=== PATIENT | female | born 1945 | race Caucasian/White ===

== ENCOUNTER 2016-07-15 09:01 | Outpatient (CLI) | payer MEDICARE, OTHER ==
--- NOTE | 2016-07-16 15:35 | Mammography Report ---
DIGITAL SCREENING MAMMOGRAM: 07/15/2016 CLINICAL INDICATION: A 70-year-old with history of benign left breast biopsy, family history of breas t cancer, for screening. COMPARISON: 07/2015, 07/2014, 05/2013, 04/2012, 04/2011, 03/2010, 01/2009. TECHNIQUE: Routine CC and MLO projections were obtained of the breasts. Bilateral laterally exaggera cesar craniocaudal views. FINDINGS: The breasts demonstrate scattered fibroglandular densities bilaterally. Postbiopsy changes in the left breast are stable. Coarse and punctate, typically benign calcifications are present. No suspicious masses, clustered microcalcifications, or regions of architectural distortion are identifi ed. IMPRESSION: BENIGN FINDINGS. RECOMMENDATION: ROUTINE ANNUAL SCREENING UNLESS OTHERWISE CLINICALLY INDICATED. BIRADS CATEGORY 2-BENIGN FINDINGS. STANDARD QUALIFYING STATEMENTS 1. This examination was reviewed with the aid of Computer-Aided Detection (CAD). 2. A negative or benign imaging report should not delay biopsy if clinically suspicious findings are present. Consider surgical consultation if warranted. More than 5% of cancers are not identified by i maging. 3. Dense breasts may obscure an underlying neoplasm. JOB #: [id number] EXT JOB #:[id number]
== END 2016-07-15 09:02 | disposition home or self-care (01) ==
LOC: DI 09:01
PROVIDERS: ATTEND Internal Medicine
DX: Z12.31 Encounter for screening mammogram for malignant neoplasm of breast (principal); Z80.3 Family history of malignant neoplasm of breast
CPT/HCPCS: 77067

== ENCOUNTER 2017-10-27 08:50 | Outpatient (CLI) | payer MEDICARE, OTHER ==
--- NOTE | 2017-11-01 12:47 | Mammography Report ---
Reason: SCREENING MAMMO Procedure Date: 10/27/2017 Accession Number: [id number] / [id number] Procedure: KARAN - Screening Mammo Dig Bilat CPT Code: FULL RESULT: EXAM: Screening Mammo Dig Bilat DATE: 10/27/2017 9:30 AM CLINICAL HISTORY: 9-year-old female with history of early menses and left breast biopsy with benign pathology results and family history of breast cancer in the mother at age 50. TECHNIQUE: Bilateral CC and MLO views were obtained. COMPARISON: 07/15/2016, 07/09/2015, 07/11/2014, 06/04/2013. FINDINGS: The breasts demonstrate heterogeneously dense fibroglandular parenchyma bilaterally. Postprocedural changes and typically benign coarse calcifications are seen in the left breast. Typically benign coarse calcifications are also seen in the right breast. No suspicious masses, clustered microcalcifications, or regions of architectural distortion are identified. IMPRESSION: Benign findings RECOMMENDATION: Routine annual screening unless otherwise clinically indicated. BIRADS CATEGORY 2: Benign findings STANDARD QUALIFYING STATEMENTS: 1. This examination was not reviewed with the aid of Computer-Aided Detection (CAD). 2. A negative or benign imaging report should not delay biopsy if clinically suspicious findings are present. Consider surgical consultation if warrented. More than 5% of cancers are not identified by imaging. 3. Dense breasts may obscure an underlying neoplasm.
== END 2017-10-27 08:51 | disposition home or self-care (01) ==
LOC: DI 08:50
PROVIDERS: ATTEND Internal Medicine
DX: Z12.31 Encounter for screening mammogram for malignant neoplasm of breast (principal); Z80.3 Family history of malignant neoplasm of breast
CPT/HCPCS: 77067

== ENCOUNTER 2018-02-24 08:19 | Outpatient (CLI) | payer MEDICARE, OTHER ==
--- NOTE | 2018-02-24 14:04 | CT Report ---
Reason: PARETHESIA IN HANDS AFTER FALL,DIAS VISUAL CHANGES,B Procedure Date: 02/24/2018 Accession Number: [id number] / [id number] Procedure: CT - Head W/O CPT Code: FULL RESULT: EXAM: CT HEAD EXAM DATE: 02/24/2018 08:35 AM. CLINICAL HISTORY: PARESTHESIA IN HANDS AFTER FALL,DIAS VISUAL Charges. COMPARISON: None. TECHNIQUE: Multiaxial CT images were obtained from the foramen magnum to the vertex. Reformats: Sagittal and coronal. IV contrast: None. In accordance with CT protocol optimization, one or more of the following dose reduction techniques were utilized for this exam: automated exposure control, adjustment of mA and/or KV based on patient size, or use of iterative reconstructive technique. FINDINGS: Parenchyma: No intraparenchymal hemorrhage. No evidence of mass, midline shift, or CT findings of acute infarction. Atkins-white differentiation is distinct. Diffuse chronic microangiopathic white matter changes are evident. Extraaxial Spaces: Normal for age. No subdural or epidural collections identified. Ventricles: The ventricles and cortical sulci are enlarged, consistent with age-related tissue loss. Sinuses and orbits: Imaged paranasal sinuses, orbits, and mastoids show no significant abnormality. Bones: No evidence of fracture or calvarial defect. Other: None. IMPRESSION: Generalized age-related cortical atrophic changes without evidence of acute intracranial abnormality. RADIA
--- NOTE | 2018-02-24 14:04 | CT Report ---
Reason: PARETHESIA IN HANDS AFTER FALL,DIAS VISUAL CHANGES,B Procedure Date: 02/24/2018 Accession Number: [id number] / [id number] Procedure: CT - Cervical Spine W/O CPT Code: FULL RESULT: EXAM: CT CERVICAL SPINE WITHOUT CONTRAST DATE: 02/24/2018 08:35 AM. HISTORY: PARESTHESIA IN HANDS AFTER FALL,DIAS VISUAL CHANGES,B. COMPARISONS: None. TECHNIQUE: Thin-section axial images were acquired of the cervical spine without contrast. Post-processing: Coronal and sagittal reformats. Other: None. In accordance with CT protocol optimization, one or more of the following dose reduction techniques were utilized for this exam: automated exposure control, adjustment of mA and/or KV based on patient size, or use of iterative reconstructive technique. FINDINGS: Alignment: Reversal of normal cervical lordosis. Grade 1 anterolisthesis C4 on C5. Bones: No fracture or bone lesion. Interspace Levels/Facets: C1-C2: Anterior degenerative changes between the atlas odontoid. C2-C3: Unremarkable. C3-C4: Uncovertebral osteophyte. Right facet arthropathy. C4-C5: Osteophyte, uncovertebral osteophyte, right facet arthropathy. Right neuroforamina narrowing. C5-C6: Osteophyte, disk space narrowing, subchondral sclerosis. Uncovertebral osteophyte. Right facet arthropathy. Right neuroforaminal narrowing. C6-C7: Osteophyte, disk space narrowing. Mild right neuroforamina narrowing C7-T1: Osteophyte, disk space narrowing. Musculature: Normal. No fatty atrophy. Other: The paravertebral and prevertebral soft tissues are unremarkable. Biapical scarring. Left thyroid bed clips post thyroidectomy. Carotid calcifications. IMPRESSION: 1. Grade 1 anterolisthesis C4 and C5. 2. Moderate to severe DJD. RADIA
== END 2018-02-24 08:20 | disposition home or self-care (01) ==
LOC: DI 08:19
PROVIDERS: ATTEND Internal Medicine
DX: R51 Headache (principal); M47.9 Spondylosis, unspecified; M43.12 Spondylolisthesis, cervical region; M48.02 Spinal stenosis, cervical region; H53.9 Unspecified visual disturbance; R20.2 Paresthesia of skin
CPT/HCPCS: 70450; 72125

== ENCOUNTER 2018-12-14 10:12 | Outpatient (CLI) | payer MEDICARE, OTHER ==
--- NOTE | 2018-12-15 08:32 | Mammography Report ---
Reason: SCREENING MAMMO Procedure Date: 12/14/2018 Accession Number: [id number] / [id number] Procedure: KARAN - Screening Mammo w/Albert CPT Code: Final Report FULL RESULT: EXAM: Screening Mammo w/Albert DATE: 12/14/2018 11:07 AM CLINICAL HISTORY: Screening encounter. History of benign left breast biopsy, excisional type. Family history of breast cancer in the mother at the age of 50. TECHNIQUE: (B) - Bilateral CC and MLO views were obtained. COMPARISON: 10/27/2017 through 01/13/2009. PARENCHYMAL PATTERN: (D) - The breast(s) demonstrate(s) heterogeneously dense fibroglandular parenchyma. FINDINGS: Left breast postsurgical changes are stable, typically benign. There are no suspicious masses, calcifications, or areas of distortion. IMPRESSION: Benign findings. BI-RADS category 2. RECOMMENDATION: (ANNUAL) - Recommend routine annual screening mammography. BI-RADS CATEGORY: (2) - Benign Findings. STANDARD QUALIFYING STATEMENTS: 1. This examination was not reviewed with the aid of Computer-Aided Detection (CAD). 2. A negative or benign imaging report should not preclude biopsy if clinically suspicious findings are present. 3. Dense breasts may obscure an underlying neoplasm. 4. This examination was reviewed with the aid of 3D breast imaging (tomosynthesis).
== END 2018-12-14 10:13 | disposition home or self-care (01) ==
LOC: DI 10:12
PROVIDERS: ATTEND Internal Medicine
DX: Z12.31 Encounter for screening mammogram for malignant neoplasm of breast (principal); Z80.3 Family history of malignant neoplasm of breast
CPT/HCPCS: 77063; 77067

== ENCOUNTER 2019-01-01 10:08 | Outpatient (CLI) | payer MEDICARE, OTHER ==
--- NOTE | 2019-01-01 14:00 | CARDIAC PROCEDURE NOTE ---
DATE OF SERVICE: 01/01/2019 Physician: Dilcia Pickett MD PROTOCOL: Magdy. TIME: 6 minutes 27 seconds. METS: 7.71. REASON FOR STOPPING TEST: Patient had surpassed 85% of maximum predicted heart rate, and had exercised for over 1 minute after the injection. Heart rate response: 99 to a maximum of 148. Blood pressure response: 188/88 resting, which was the maximum symptoms: No chest pain ST segment response: [address] segment depressions in leads V4 and V5 at maximal exercise. Arrhythmias: frequent PVCs, at least 60. IMPRESSION: No symptoms and no significant EKG changes. CONCLUSION: Await results of the imaging studies. TD: 01/01/2019 13:13 LUCIA
--- NOTE | 2019-01-02 08:25 | Nuclear Medicine Report ---
Reason: CHEST PAIN Procedure Date: 01/01/2019 Accession Number: [id number] / [id number] Procedure: NM - Myocardial Perfusion STR/RST CPT Code: Final Report FULL RESULT: EXAM: SINGLE-ISOTOPE PHARMACOLOGICAL STRESS TEST WITH REGADENOSON. SINGLE-ISOTOPE AND TWO-DAY REST/STRESS MYOCARDIAL PERFUSION SCANS WITH TOMOGRAPHIC IMAGING, QUANTITATIVE ANALYSIS, WALL MOTION ANALYSIS AND CALCULATION OF EJECTION FRACTION. EXAM DATE: 01/01/2019 02:09 PM. CLINICAL HISTORY: CHEST PAIN. COMPARISON: None.. TECHNIQUE: A pharmacological stress was performed with the infusion of 0.4 mg regadenoson per protocol. According to protocol, 10.7 mCi of Tc-99m sestamibi was injected for stress myocardial perfusion scan. Motion correction was applied when appropriate. The following day after the intravenous administration of 42.4 mCi of Tc-99m sestamibi, a rest myocardial perfusion scan was done with tomography. Motion correction was applied when appropriate. Gated tomographic images were obtained for wall motion analysis and computation of left ventricular ejection fraction. FINDINGS: Perfusion images: Left ventricular chamber size appears normal at rest and unchanged at stress. No convincing fixed perfusion deficits. No convincing reversible perfusion deficits. SSS 0, SRS 0, SDS 0. Gated images: No convincing focal wall motion abnormality. Calculated left ventricular EDV 41 mL, ESV 3 mL. The left ventricular ejection fraction is estimated at 92% (normal > 50%). IMPRESSION: 1. No convincing reversible perfusion deficits to indicate stress-induced ischemia. 2. No convincing fixed perfusion deficits. 3. Left ventricular ejection fraction of 92% (normal > 50%). Please correlate findings with stress ECG tracings and procedure notes. RADIA
== END 2019-01-01 10:09 | disposition home or self-care (01) ==
LOC: DI 10:08
PROVIDERS: ATTEND Internal Medicine
DX: R07.9 Chest pain, unspecified (principal)
CPT/HCPCS: 78452; 93017; A9500

== ENCOUNTER 2019-12-25 15:45 | Outpatient (CLI) | payer MEDICARE, OTHER ==
--- NOTE | 2019-12-26 15:35 | Mammography Report ---
BILATERAL DIGITAL SCREENING MAMMOGRAM 3D/2D: 12/25/2019 CLINICAL: Routine screening. Comparison is made to exams dated: 12/14/2018 mammogram, 10/27/2017 mammogram, and 07/15/2016 mammogram - [facility]. There are scattered fibroglandular elements in both breasts. No significant masses, calcifications, or other findings are seen in either breast. There has been no significant interval change. IMPRESSION: NEGATIVE There is no mammographic evidence of malignancy. A 1 year screening mammogram is recommended. This exam was interpreted at Station ID: [id number]. NOTE: For mammograms, a report in lay terms will be sent to the patient. Approximately 15% of breast malignancies will not be visualized mammographically. In the management of a palpable breast mass, a negative mammogram must not discourage biopsy of a clinically suspicious lesion. Electronically Signed By: Ariella wadsworth/alda:12/25/2019 18:09:31 ACR BI-RADS Category 1: Negative 3341F PARENCHYMAL PATTERN: (A) - The breast(s) demonstrate(s) scattered fibroglandular densities. BI-RADS CATEGORY: (1) - 1 RECOMMENDATION: (ANNUAL) - Recommend routine annual screening mammography. [id number] 1 year screening LATERALITY: (B)
== END 2019-12-25 15:46 | disposition home or self-care (01) ==
LOC: DI 15:45
PROVIDERS: ATTEND Internal Medicine
DX: Z12.31 Encounter for screening mammogram for malignant neoplasm of breast (principal)
CPT/HCPCS: 77063; 77067

== ENCOUNTER 2021-01-04 10:44 | Outpatient (CLI) | payer MEDICARE, OTHER | END 2021-01-04 10:45 | disposition critical access hospital (66) | LOC: EMS 10:44 | DX: R20.0 Anesthesia of skin (principal); R20.2 Paresthesia of skin; R47.01 Aphasia | CPT/HCPCS: A0425; A0427 ==

== ENCOUNTER 2021-01-04 10:55 | Emergency (ER) | payer MEDICARE, OTHER ==
[2021-01-04 11:03] VITALS: BP 183/82
--- NOTE | 2021-01-04 11:45 | ED Physician Documentation ---
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 Got anxious about it and then felt short of breath, developing subsequent tingling in arms and face. called EMS and they noted her hyperventilating. Coached to breath slower and her symptoms improved. Not feeling weakness, numbness, nor lightheaded on arrival to ER. Associated symptoms: denies chest pain, focal weakness. Had some pressure feeling frontal area when breathing fast. No headache now. - Additonal information Additional information: Patient feeling like she had anxiety reaction to the initial postural lightheadedness. She denies any headache, chest pain, dyspnea during the intercourse. Review of Systems Constitutional: denies: Fever, Chills Nose: denies: Rhinorrhea / runny nose, Congestion Throat: denies: Sore throat Cardiac: denies: Chest pain / pressure, Palpitations Respiratory: denies: Cough GI: denies: Abdominal Pain, Nausea, Vomiting, Diarrhea Neurologic: reports: Generalized weakness, Near syncope (lightheaded feeling when stood up from bed after intercourse.). 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 HEENT: Tonsil/Adenoidectomy, Other Derm: Skin cancer surgery - Present Medications Home Medications: Ambulatory Orders Medication Instructions Recorded Confirmed Alprazolam [Xanax] 0.25 mg PO Q8H PRN 02/11/15 03/20/15 Ascorbic Acid [Fruit C-500] 500 mg PO DAILY 02/11/15 03/20/15 Aspirin [Aspir 81] 81 mg PO DAILY 02/11/15 03/19/15 Atorvastatin Calcium [Lipitor] 40 mg PO DAILY 02/11/15 03/20/15 Cholecalciferol (Vitamin D3) 2,000 units PO DAILY 02/11/15 03/20/15 [Vitamin D] Fluticasone [Flonase] 1 spray CHRISTIANE DAILY 02/11/15 03/19/15 Levothyroxine [Synthroid] 75 mcg PO DAILY 02/11/15 03/19/15 Losartan [Cozaar] 25 mg PO DAILY 02/11/15 03/19/15 Multivitamin [Multivitamins] 1 tab PO DAILY 02/11/15 03/19/15 [place]am-3 Fatty Acids/Fish Oil [Fish 1 cap PO DAILY 02/11/15 03/19/15 Oil 1,000 mg Capsule] Potassium Chloride [K-Dur] 20 meq PO DAILY 02/11/15 03/19/15 Vitamin B Complex 1 tab PO DAILY 02/11/15 03/19/15 Zolpidem Tartrate [Ambien] 10 mg PO DAILY 02/11/15 03/19/15 hydroCHLOROthiazide 25 mg PO DAILY 02/11/15 03/20/15 [Hydrochlorothiazide] - Allergies Allergies/Adverse Reactions: Allergies Allergy/AdvReac Type Severity Reaction Status Date / Time hydrocodone Allergy Itching Verified 01/04/21 11:03 lisinopril AdvReac Unknown Verified 01/04/21 11:03 - Social History Does the pt smoke?: No Smoking Status: Never smoker Does the pt drink ETOH?: Yes Does the pt have substance abuse?: No PD ED PE NORMAL - Vitals Vital signs reviewed: Yes - General General: Alert and oriented X 3, No acute distress, Well developed/nourished - HEENT HEENT: PERRL, EOMI, Pharynx benign - Neck Neck: Supple, no meningeal sign, No adenopathy - Cardiac Cardiac: RRR, No murmur - Respiratory Respiratory: Clear bilaterally - Abdomen Abdomen: Normal bowel sounds, Soft, Non tender - Back Back: No CVA TTP - Derm Derm: Normal color, Warm and dry - Extremities Extremities: Normal ROM s pain, No edema, No calf tenderness / cord - Neuro Neuro: Alert and oriented X 3, marble helper 2-12 intact, No motor deficit, No sensory deficit, Normal speech Eye Opening: Spontaneous Motor: Obeys Commands Verbal: Oriented GCS Score: 15 Results - Vitals Vitals: Vital Signs - 24 hr 01/04/21 10:59 Temperature 36.8 C Heart Rate 99 Respiratory 20 Rate Blood Pressure 183/82 H O2 Saturation 98 Oxygen O2 Source Room air PD MEDICAL DECISION MAKING - ED course Complexity details: considered differential (does sound like hyperventilation/anxiety after having lightheaded/leg weakness with postural change. ), d/w patient Departure - Departure Disposition: 01 Home, Self Care Clinical Impression: Transient leg weakness, Acute hyperventilation Condition: Stable Record reviewed to determine appropriate education?: Yes Follow-Up: Dilcia Pickett MD [Primary Care Provider] - Comments: It sounds most likely you had a transient drop in blood pressure or sugar with then compensation by your body (hence the elevated blood pressure on initial EMS arrival). It is hard to tell for sure. Your symptoms are resolved now and the shakiness and some numbness would relate to the hyperventilating. This would have been triggered from anxiety related to your initial leg weakness symptoms. Given that you are feeling well now, shared decision between us is to not do any significant testing at this time. Return or follow-up with your primary if recurrent symptoms in the near future. Discharge Date/Time: 01/04/21 12:18
== END 2021-01-04 12:18 | disposition home or self-care (01) ==
LOC: EDUNIT# → ED 10:55
DX: R29.898 Other symptoms and signs involving the musculoskeletal system (principal); R06.4 Hyperventilation
CPT/HCPCS: 99283

== ENCOUNTER 2021-02-11 09:05 | Outpatient (CLI) | payer MEDICARE, OTHER ==
--- NOTE | 2021-02-12 08:37 | Mammography Report ---
BILATERAL DIGITAL SCREENING MAMMOGRAM 3D/2D: 02/11/2021 CLINICAL: Routine screening. Comparison is made to exams dated: 12/14/2018 mammogram, 12/25/2019 mammogram, and 10/27/2017 mammogra m - [facility]. There are scattered fibroglandular elements in both breasts. No significant masses, calcifications, or other findings are seen in either breast. There has been no significant interval change. IMPRESSION: NEGATIVE There is no mammographic evidence of malignancy. A 1 year screening mammogram is recommended. This exam was interpreted at Station ID: [id number]. NOTE: For mammograms, a report in lay terms will be sent to the patient. Approximately 15% of breast malignancies will not be visualized mammographically. In the management of a palpable breast mass, a negative mammogram must not discourage biopsy of a clinically suspicious lesion. Electronically Signed By: Kannan Quesada M.D. ar/penrad:02/11/2021 10:56:16 ACR BI-RADS Category 1: Negative 3341F PARENCHYMAL PATTERN: (A) - The breast(s) demonstrate(s) scattered fibroglandular densities. BI-RADS CATEGORY: (1) - 1 RECOMMENDATION: (ANNUAL) - Recommend routine annual screening mammography. [id number] 1 year screening LATERALITY: (B)
== END 2021-02-11 09:06 | disposition home or self-care (01) ==
LOC: DI 09:05
DX: Z12.31 Encounter for screening mammogram for malignant neoplasm of breast (principal)

== ENCOUNTER 2021-10-26 08:00 | Outpatient (CLI) | payer MEDICARE, OTHER ==
[2021-10-26 15:45] LABS: BASOPHILS # (AUTO) 0.1 10^3/uL (0.0-0.1); BASOPHILS % (AUTO) 1.3 %; EOSINOPHILS # (AUTO) 0.1 10^3/uL (0.0-0.7); EOSINOPHILS % (AUTO) 1.1 %; HCT - HEMATOCRIT 43.6 % (37.0-47.0); HGB - HEMOGLOBIN 14.7 g/dL (12.0-16.0); LYMPHOCYTES # (AUTO) 1.7 10^3/uL (1.5-3.5); LYMPHOCYTES % (AUTO) 31.4 %; MEAN CORPUSCULAR HEMOGLOBIN 33.6 pg (27.0-31.0); MEAN CORPUSCULAR HGB CONC 33.7 g/dL (32.0-36.0); MEAN CORPUSCULAR VOLUME 99.5 fL (81.0-99.0); MEAN PLATELET VOLUME 10.5 fL (7.9-10.8); MONOCYTES # (AUTO) 0.5 10^3/uL (0.0-1.0); MONOCYTES % (AUTO) 9.7 %; NEUTROPHILS % (AUTO) 56.3 %; PLT - PLATELET COUNT 291 10^3/uL (130-450); RED BLOOD COUNT 4.38 10^6/uL (4.20-5.40); RED CELL DISTRIBUTION WIDTH 13.2 % (12.0-15.0); WHITE BLOOD COUNT 5.3 x10^3/uL (4.8-10.8)
[2021-10-26 17:18] LABS: ALBUMIN 4.4 g/dL (3.2-5.5); ALBUMIN/GLOBULIN RATIO 1.4 (1.0-2.2); ALKALINE PHOSPHATASE 68 IU/L (42-121); ALT ALANINE AMINOTRANSFERASE 32 IU/L (10-60); AST ASPARTATE AMINOTRANSFERASE 34 IU/L (10-42); BILIRUBIN,TOTAL 0.9 mg/dL (0.2-1.0); BUN - BLOOD UREA NITROGEN 16 mg/dL (6-20); CARBON DIOXIDE - CO2 24 mmol/L (21-32); CHLORIDE 100 mmol/L (101-111); CHOL/HDL RATIO 3.5 (<4.4); CHOLESTEROL 375 mg/dL; CREATININE 0.8 mg/dL (0.4-1.0); GFR - MDRD 70 (>89); GLUCOSE 99 mg/dL (70-100); HDL CHOLESTEROL 107 mg/dL; LDL CHOLESTEROL,CALCULATED 247 mg/dL; LDL/HDL RATIO 2.3 (<4.4); POTASSIUM 3.5 mmol/L (3.5-5.0); SODIUM 137 mmol/L (135-145); TOTAL PROTEIN 7.6 g/dL (6.7-8.2); TRIGLYCERIDES 107 mg/dL; VLDL CHOLESTEROL 21 mg/dL
[2021-10-26 20:50] LABS: ESTIMATED AVERAGE GLUCOSE 94 mg/dL (70-100); HEMOGLOBIN A1c% 4.9 % (4.27-6.07)
== END 2021-10-26 23:59 | disposition home or self-care (01) ==
LOC: LAB.R 08:00
PROVIDERS: ATTEND Internal Medicine
DX: Z00.00 Encounter for general adult medical examination without abnormal findings (principal); I10 Essential (primary) hypertension; E78.5 Hyperlipidemia, unspecified; E03.9 Hypothyroidism, unspecified; F41.9 Anxiety disorder, unspecified; R73.01 Impaired fasting glucose; R00.2 Palpitations; L40.9 Psoriasis, unspecified; J30.2 Other seasonal allergic rhinitis; Z79.899 Other long term (current) drug therapy
CPT/HCPCS: 80053; 80061; 83036; 83721; 84443; 85025

== ENCOUNTER 2021-12-27 13:47 | Observation (INO) | payer MEDICARE, OTHER ==
--- NOTE | 2021-12-27 14:50 | ED Physician Documentation ---
History of Present Illness - Stated complaint Stated Complaint: EAR PX,DIFF WALKING - Chief complaint Chief Complaint: Neuro - History obtained from History obtained from: Patient, Family - History of Present Illness Timing: How many hours ago (4) Pain level max: 0 Pain level now: 0 - Additonal information Additional information: Patient is a 76-year-old female brought in by her . She states that they had intercourse this morning and afterwards she had tingling in her arms, legs and face. She states that she has a history of anxiety and this felt similar to a panic attack. Lasted for about 4 hours. Symptoms have now fully resolved. No pain. No focal neurological deficits. No difficulty with speech. No slurring of words. No facial droop. No fevers. Chills. No headache. No vomiting. Review of Systems Constitutional: denies: Fever, Chills Nose: denies: Rhinorrhea / runny nose, Congestion Respiratory: denies: Cough GI: denies: Vomiting, Diarrhea Skin: denies: Rash Musculoskeletal: denies: Neck pain, Back pain Neurologic: denies: Focal weakness, Numbness, Headache, Head injury, LOC PD PAST MEDICAL HISTORY - Past Medical History Cardiovascular: Hypertension, High cholesterol, Other Respiratory: Pneumonia Endocrine/Autoimmune: HyPOthyroidism GI: Pancreatitis, Diverticulitis, Other : None HEENT: None Psych: Anxiety, Panic attacks, Claustrophobia Musculoskeletal: Osteoarthritis Derm: None - Past Surgical History Past Surgical History: Yes Ortho: Rotator cuff repair /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: Hysterectomy HEENT: Tonsil/Adenoidectomy, Other Derm: Skin cancer surgery - Present Medications Home Medications: Ambulatory Orders Medication Instructions Recorded Confirmed Alprazolam [Xanax] 0.25 mg PO Q8H PRN 02/11/15 03/20/15 Ascorbic Acid [Fruit C-500] 500 mg PO DAILY 02/11/15 03/20/15 Aspirin [Aspir 81] 81 mg PO DAILY 02/11/15 03/19/15 Atorvastatin Calcium [Lipitor] 40 mg PO DAILY 02/11/15 03/20/15 Cholecalciferol (Vitamin D3) 2,000 units PO DAILY 02/11/15 03/20/15 [Vitamin D] Fluticasone [Flonase] 1 spray CHRISTIANE DAILY 02/11/15 03/19/15 Levothyroxine [Synthroid] 75 mcg PO DAILY 02/11/15 03/19/15 Losartan [Cozaar] 25 mg PO DAILY 02/11/15 03/19/15 Multivitamin [Multivitamins] 1 tab PO DAILY 02/11/15 03/19/15 [place]-3 Fatty Acids/Fish Oil [Fish 1 cap PO DAILY 02/11/15 03/19/15 Oil 1,000 mg Capsule] Potassium Chloride [K-Dur] 20 meq PO DAILY 02/11/15 03/19/15 Vitamin B Complex 1 tab PO DAILY 02/11/15 03/19/15 Zolpidem Tartrate [Ambien] 10 mg PO DAILY 02/11/15 03/19/15 hydroCHLOROthiazide 25 mg PO DAILY 02/11/15 03/20/15 [Hydrochlorothiazide] - Allergies Allergies/Adverse Reactions: Allergies Allergy/AdvReac Type Severity Reaction Status Date / Time hydrocodone Allergy Itching Verified 12/27/21 14:29 lisinopril AdvReac Unknown Verified 12/27/21 14:29 - Social History Does the pt smoke?: No Smoking Status: Never smoker Does the pt drink ETOH?: Yes Does the pt have substance abuse?: No PD ED PE NORMAL - Vitals Vital signs reviewed: Yes - General General: Alert and oriented X 3, No acute distress, Well developed/nourished - HEENT HEENT: Atraumatic, PERRL, Ears normal, Moist mucous membranes - Neck Neck: Supple, no meningeal sign, No JVD, No bruit - Cardiac Cardiac: RRR, Strong equal pulses - Respiratory Respiratory: No respiratory distress, Clear bilaterally - Abdomen Abdomen: Normal bowel sounds, Soft, Non tender, Non distended - Derm Derm: Warm and dry - Extremities Extremities: No deformity, No edema - Neuro Neuro: Alert and oriented X 3, manager service desk 2-12 intact, No motor deficit, No sensory deficit, Normal speech Eye Opening: Spontaneous Motor: Obeys Commands Verbal: Oriented GCS Score: 15 - Psych Psych: Normal mood, Normal affect - Free text exam Free text exam: Patient with an ataxic wide-based gait. Results - Vitals Vitals: Vital Signs - 24 hr 12/27/21 12/27/21 12/27/21 14:23 14:29 16:29 Temperature 37.4 C 37.4 C Heart Rate 102 H 102 H 90 Respiratory 16 16 16 Rate Blood Pressure 198/84 H 198/84 H 160/80 H O2 Saturation 97 97 98 Oxygen O2 Source Room air - EKG (time done) 1751 Rate: Rate (enter#) (90) Rhythm: NSR [place]: Normal Intervals: Normal PA QRS: Normal Ischemia: Normal ST segments - Labs Labs: Laboratory Tests 12/27/21 12/27/21 14:56 14:56 WBC 5.8 RBC 4.20 Hgb 13.6 Hct 40.8 MCV 97.1 MCH 32.4 H MCHC 33.3 RDW 13.0 Plt Count 283 MPV 9.6 Neut # (Auto) 4.2 Lymph # (Auto) 1.1 L [place] # (Auto) 0.5 Eos # (Auto) 0.0 Baso # (Auto) 0.1 Absolute Nucleated RBC 0.00 Nucleated RBC % 0.0 Sodium 137 Potassium 3.9 Chloride 99 L Carbon Dioxide 25 Anion Gap 13.0 BUN 19 Creatinine 0.6 Estimated GFR (MDRD) 98 Glucose 102 H Calcium 9.7 Phosphorus 2.7 Magnesium 2.2 - Rads (name of study) CT angiogram head Radiology: Final report received, EMP read contemporaneously, See rad report CT angiogram neck Radiology: Final report received, EMP read contemporaneously, See rad report PD MEDICAL DECISION MAKING - ED course Complexity details: reviewed results, re-evaluated patient, considered differential, d/w patient, d/w family, d/w eco industrial development consultant ED course: Patient is a 76-year-old female who has ataxia on exam. CT angiogram head and neck show severe tandem basilar artery stenosis. Discussed the case with Dr. Mahoney, neurology, recommends dual antiplatelet therapy, observation for serial neurological exams and MRI. Patient is still with an ataxic gait. Likely Vertebrobasilar insufficiency. Discussed the case with Dr. Byrne, hospitalist who accepts. This document was made in part using voice recognition software. While efforts are made to proofread this document, sound alike and grammatical errors may occur. Departure - Departure Disposition: ED Place in Observation Clinical Impression: VBI (vertebrobasilar insufficiency), Basilar artery stenosis, Ataxia Condition: Stable Discharge Date/Time: 12/27/21 18:58 NIHSS - Time Time: 14:45 - Level of Consciousness Level of consciousness: (0) Alert, Keenly responsive LOC Questions: (0) Answers both Q's correct LOC Commands: (0) Performs both correctly - Gaze Best Gaze: (0) Normal - Visual Visual: (0) No loss - Facial Palsy Facial Palsy: (0) Normal, symmetrical movement - Motor Arms (both separate) Motor Arm (right): (0) No drift Motor Arm (left): (0) No drift - Motor Legs (both separate) Motor Leg (right): (0) No drift Motor Leg (left): (0) No drift - Limb Ataxia Limb Ataxia: (0) Absent - Sensory Sensory: (0) Normal - Best Language Best Language: (0) No aphasia - Dysarthria Dysarthria: (0) Normal - Extinction and Inattention (formally neg Extinction and inattention: (0) No abnormality - Total Score/Results Total Score/Result: 0
[2021-12-27 15:02] LABS: BASOPHILS # (AUTO) 0.1 10^3/uL (0.0-0.1); BASOPHILS % (AUTO) 0.9 %; EOSINOPHILS % (AUTO) 0.5 %; HCT - HEMATOCRIT 40.8 % (37.0-47.0); HGB - HEMOGLOBIN 13.6 g/dL (12.0-16.0); LYMPHOCYTES # (AUTO) 1.1 10^3/uL (1.5-3.5); LYMPHOCYTES % (AUTO) 18.4 %; MEAN CORPUSCULAR HEMOGLOBIN 32.4 pg (27.0-31.0); MEAN CORPUSCULAR HGB CONC 33.3 g/dL (32.0-36.0); MEAN CORPUSCULAR VOLUME 97.1 fL (81.0-99.0); MEAN PLATELET VOLUME 9.6 fL (7.9-10.8); MONOCYTES # (AUTO) 0.5 10^3/uL (0.0-1.0); MONOCYTES % (AUTO) 7.9 %; NEUTROPHILS # (AUTO) 4.2 10^3/uL (1.5-6.6); NEUTROPHILS % (AUTO) 72.1 %; PLT - PLATELET COUNT 283 10^3/uL (130-450); WHITE BLOOD COUNT 5.8 x10^3/uL (4.8-10.8)
[2021-12-27 15:14] LABS: CALCIUM 9.7 mg/dL (8.5-10.3); CREATININE 0.6 mg/dL (0.4-1.0); MAGNESIUM 2.2 mg/dL (1.7-2.8); PHOSPHORUS 2.7 mg/dL (2.5-4.6); POTASSIUM 3.9 mmol/L (3.5-5.0)
[2021-12-27] MEDS ORDERED: LORazepam 2 MG/ML VIAL IVP STA (15:50)
[2021-12-27] MEDS ORDERED: iohexoL-300 100 ML VIAL ONE (16:07)
[2021-12-27] MEDS ORDERED: iohexoL-300 100 ML VIAL IVP ONE (16:53)
--- NOTE | 2021-12-27 17:10 | CT Report ---
PROCEDURE: ANGIO HEAD W/WO INDICATIONS: ataxia CONTRAST: 80 ml omni 300 TECHNIQUE: Precontrast 4.5 mm thick angled axial sections acquired from the foramen magnum to the vertex. Afte r the administration of intravenous contrast, 1 mm thick sections acquired through the [place] of [place] is. Postcontrast 4.5 mm thick sections then re-acquired from the foramen magnum to the vertex. For radiation dose reduction, the following was used: automated exposure control, adjustment of mA and/o r kV according to patient size. COMPARISON: 02/24/2018 FINDINGS: Image quality: Excellent. Anterior circulation: Bilateral sclerotic calcification of the cavernous segments of both internal ca rotid arteries results in moderate stenosis distally in the left. The flow within the paired anterio r cerebral arteries is normal and symmetric. The flow within the middle cerebral arteries is normal and symmetric. The anterior communicating artery is seen. No aneurysms are seen. Posterior circulation: Diminutive right vertebral artery terminates in the right posterior inferior c erebellar artery. Left vertebral artery is dominant. 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 This artery terminates in the superior cerebellar arteries. 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 P2 segments are supplied by widely patent posterior communicating arteries. CSF spaces: Ventricles are normal in size and shape. Basal cisterns are patent. No extra-axial flu id collections. Brain: No midline shift. No intracranial bleeds or masses. Atkins-white matter interface appears int act. Atrophy and chronic ischemic change Skull and face: Calvarium and facial bones appear intact, without suspicious lesions. Sinuses: Visualized sinuses and mastoids are clear. IMPRESSION: 1. Severe tandem basilar artery stenosis without occlusion. 2. 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 3. Moderate atrophy and multifocal white matter chronic ischemic change. Reviewed by: Jovani Calderón MD on 12/27/2021 4:09 PM [place] Approved by: Jovani Calderón MD on 12/27/2021 4:09 PM [facility] Station ID: [id number]
--- NOTE | 2021-12-27 17:12 | CT Report ---
PROCEDURE: CT angiogram neck with contrast INDICATIONS: ataxia CONTRAST: 80 ml omni 300 TECHNIQUE: After the administration of intravenous contrast, 1.5 mm axial sections acquired from the aortic arch to the [place] of [place]. For radiation dose reduction, the following was used: automated exposure control, adjustment of mA and/or kV according to patient size. COMPARISON: None. FINDINGS: Image quality: Excellent. Carotid system: The great vessels demonstrate a conventional anatomy as they arise from the aortic a rch. The origins of the common carotid arteries appear patent. The common carotid arteries demonstr ate normal calibers and courses. As described plaque in both proximal ICA present without stenosis ut ilizing NASCET criteria. Posterior circulation: The origins of the vertebral arteries appear patent. Left vertebral artery d ominance The more superior portions of the vertebral arteries demonstrate normal course and caliber. They join to form a normal appearing basilar artery. Soft tissues: Visualized neck soft tissues demonstrate no suspicious abnormalities. Left thyroidect maci. Bones: No suspicious bony lesions. Visualized cervical spine appears normally aligned. Multilevel degenerative disc disease and arthropathy in the cervical spine IMPRESSION: Atherosclerotic calcification without significant stenosis or large vessel occlusion. The estimate of stenosis included in the report of the imaging study was calculated using the NASCET method Reviewed by: Jovani Calderón MD on 12/27/2021 4:11 PM [place] Approved by: Jovani Calderón MD on 12/27/2021 4:11 PM [place] Station ID: [id number]
[2021-12-27] MEDS ORDERED: ASPIRIN CHEW 81 MG TABLET PO STA (17:31)
[2021-12-27] MEDS ORDERED: SODIUM CHLORIDE FLUSH 0.9% 10 ML SYRINGE IVP PRN (17:44)
[2021-12-27] MEDS ORDERED: ONDANSETRON ODT 4 MG TABLET TL PRN (17:44)
[2021-12-27] MEDS ORDERED: ACETAMINOPHEN 325 MG TABLET PO PRN (17:44)
[2021-12-27] MEDS ORDERED: oxyCODONE 5 MG TABLET PO PRN (17:44)
[2021-12-27] MEDS ORDERED: ONDANSETRON 4 MG/2 ML VIAL IVP PRN (17:44)
--- NOTE | 2021-12-27 17:51 | HISTORY & PHYSICAL EXAMINATION ---
Chief Complaint - Chief Complaint Chief Complaint: dizziness and can't walk History of Present Illness - Admitted From Admitted From:: home - History Obtained From Records Reviewed: [facility] History obtained from: Dr. Benavides Exam Limitations: none - History of Present Illness HPI Comment/Other: 76-year-old white female whose risk factors for peripheral vascular disease include hypertension, hyperlipidemia with a positive family history but she is a non-smoker, nondiabetic. She was having intercourse with her this morning when she felt "numb and tingly" all over. When she got up out of bed she felt like she could not walk correctly and was dizzy and had an ataxic gait. After 5 hours she decided to come to the emergency room because she was not getting any better. She told the triage nurse that she was having bilateral lower extremity weakness. Tingling to the right side of her face and right hand had gotten better. Right ear hurt. She does have a history of anxiety so she was wondering if she was having a panic attack. Temperature was 37.4. Heart rate 102. Blood pressure 198/84. Respirations 16 and 97% on room air. Dr. Orellana describes her as having a wide based tandem gait. CT angiogram of the head and neck shows bilateral sclerotic calcification of the cavernous segments of both internal carotids resulting in moderate stenosis distally in the left. The flow within the paired anterior cerebral arteries is normal and symmetric. Middle cerebral arteries are normal. Anterior communicating artery okay. She has a diminutive right vertebral artery terminating in the right posterior inferior cerebellar artery. Left vertebral artery dominant. 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 It terminates in the superior cerebellar arteries. 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 Bilateral P1 hypoplasia/a plasia. P2 segments are supplied by widely patent posterior communicating arteries. Moderate atrophy and multifocal white matter chronic ischemic changes but no acute stroke. Telestroke was consulted. They instructed us to start the patient on dual platelet therapy. They would like an MRI in the morning. Unfortunately there is not much to do for this type of anatomy, but they would like us to call him if she has recurrence or worsening severity of symptoms. After the MRI she can be discharged. 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 Mother of breast and lung cancer age 55. Brother has had a stent placed. one Sister is healthy. one Sister of cervical cancer. Daughter w autoimmune. Son healthy Living arrangement: At home Living Situation: With spouse/s.o. Social History Notes: Born in [facility]. Raised there. After high school the patient got , had 2 children. her first and later her present 3rd . Never smoked. Drinks 3 drinks of alcohol a day even after she developed pancreatitis in March 2015.she and her live in their own home in [place] - Substance History Use: Uses substance without health or social issues: Alcohol - POLST Patient has POLST: No POLST Status: Full Code Meds/Allgy - Home Medications Home Medications: Ambulatory Orders Medication Instructions Recorded Confirmed Alprazolam [Xanax] 0.25 mg PO Q8H PRN 02/11/15 03/20/15 Ascorbic Acid [Fruit C-500] 500 mg PO DAILY 02/11/15 03/20/15 Aspirin [Aspir 81] 81 mg PO DAILY 02/11/15 03/19/15 Atorvastatin Calcium [Lipitor] 40 mg PO DAILY 02/11/15 03/20/15 Cholecalciferol (Vitamin D3) 2,000 units PO DAILY 02/11/15 03/20/15 [Vitamin D] Fluticasone [Flonase] 1 spray CHRISTIANE DAILY 02/11/15 03/19/15 Levothyroxine [Synthroid] 75 mcg PO DAILY 02/11/15 03/19/15 Losartan [Cozaar] 25 mg PO DAILY 02/11/15 03/19/15 Multivitamin [Multivitamins] 1 tab PO DAILY 02/11/15 03/19/15 [place]-3 Fatty Acids/Fish Oil [Fish 1 cap PO DAILY 02/11/15 03/19/15 Oil 1,000 mg Capsule] Potassium Chloride [K-Dur] 20 meq PO DAILY 02/11/15 03/19/15 Vitamin B Complex 1 tab PO DAILY 02/11/15 03/19/15 Zolpidem Tartrate [Ambien] 10 mg PO DAILY 02/11/15 03/19/15 hydroCHLOROthiazide 25 mg PO DAILY 02/11/15 03/20/15 [Hydrochlorothiazide] - Allergies Allergies/Adverse Reactions: Allergies Allergy/AdvReac Type Severity Reaction Status Date / Time hydrocodone Allergy Itching Verified 12/27/21 14:29 lisinopril AdvReac Unknown Verified 12/27/21 14:29 Review of Systems - Constitutional Constitutional: denies: Fatigue, Fever, Chills, Malaise - Eyes Eyes: denies: Pain, Irritation, Amaurosis, Blurred vision - Ears, Nose & Throat Ears, Nose & Throat: reports: Other (crowns). denies: Ear pain, Hearing loss, Hearing aids, Tinnitus, Sore throat - Cardiovascular Cariovascular: denies: Irregular heart rate, Palpitations, Chest pain, Edema - Respiratory Respiratory: denies: Cough, Sputum production, Snoring - Gastrointestinal Gastrointestinal: denies: Abdominal pain, Abdominal distention, Constipation, Diarrhea - Genitourinary Genitourinary: denies: Dysuria, Frequency, Urgency, Hematuria - Musculoskeletal Musculoskeletal: reports: Muscle aches, Joint pain (MCP deformed) Prior Level of Functionality: Completely independent with activities of daily living and no use of durable medical equipment. Exam - Vital Signs Reviewed Vital Signs: Yes Vital Signs: Vital Signs x48h Temp Pulse Resp BP Pulse Ox 12/27/21 16:29 90 16 160/80 H 98 12/27/21 14:29 37.4 C 102 H 16 198/84 H 97 12/27/21 14:23 37.4 C 102 H 16 198/84 H 97 - Physical Exam General Appearance: positive: No acute distress, Alert, Other (thin well loni omed, well nourished white female that looks younger than stated age with dyed hair and eyebrows) Eyes Bilateral: positive: PERRL, EOMI ENT: positive: Other (veneers) Respiratory: positive: No respiratory distress. 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 2nd, 3rd, 4th the worst. No true wrist deformity. No heat or active synovitis) Neurologic/Psychiatric: positive: Oriented x3, CN's nml (2-12). negative: Motor nml (cerebellar finger to nose w L hand past pointing. R hand hesitant but hit target. No focal loss of strength.), Facial droop, Slurred/abnml speech Conclusion/Plan - Problem List (1) TIA involving basilar artery Conclusion/Plan: We will follow instructions as per telestroke. Plavix and aspirin will be continued tomorrow morning. MRI has been ordered. I will also go ahead and order PT and OT evaluation.I have also recommended that she make sure she uses a walking stick for everything for the next few weeks We spoke about risk reduction. She is supposed to be on atorvastatin but it made her feel "weak" so she never took it. I explained that she should probably reduce her risk factors as much as possible. We can never make her risk 0. But we can lower it by at least 50% depending on what her risk is. She can do that by making sure her cholesterol is perfect and blood pressure is perfect. Plan: Plavix, Aspirin Atorvastatin 80 mg one-time dose tonight In the outpatient setting she can negotiate with her PCP about which statin would give her the lowest amount of side effects Blood pressure control with permissive hypertension in the next 24 to 48 hours. Allow systolic up to 180. She will still get her losartan tonight. (2) HTN (hypertension) Conclusion/Plan: Permissive hypertension for up to 72 hours. Will reduce blood pressure to below 180. At home she takes Cozaar and hydrochlorothiazide. I will give her 25 mg of Cozaar tonight. Qualifiers: Hypertension type: primary hypertension Qualified Code(s): I10 - Essential (primary) hypertension (3) Borderline hyperlipidemia Conclusion/Plan: Check fasting lipid panel and resume her statin. For tonight she will get 80 mg of atorvastatin I patient setting she will negotiate with her PCP what is appropriate for her with the least amount of side effects (4) Generalized anxiety disorder Conclusion/Plan: Resume her usual home Xanax. She would also like her nighttime Ambien. I told her that I wanted to be cautious about this because it can cause confusion in the middle of the night especially in the hospitalized setting for someone who is 76 years old but she still wants it. (5) Hypothyroid Conclusion/Plan: resume her ususal dose. wants this done and specifically requests this. Qualifiers: Hypothyroidism type: acquired Qualified Code(s): E03.9 - Hypothyroidism, unspecified - Lab Results Lab results reviewed: Yes Fish Bones: 12/27/21 14:56 12/27/21 14:56 - Diagnostic Imaging Results Diagnostic Imaging Results: positive: Final report reviewed - EKG Results EKG Interpreted Independently: No Core Measures - Anticipated LOS I expect patient to be DC'd or transferred within 96 hours.: Yes - DVT/VTE - Prophylaxis VTE/DVT Device ordered at admit?: Yes
[2021-12-27] MEDS ORDERED: ZOLPIDEM 5 MG TABLET PO PRN (19:14)
[2021-12-27] MEDS ORDERED: ALPRAZolam 0.25 MG TABLET PO PRN (19:16)
[2021-12-27] MEDS ORDERED: ATORVASTATIN 40 MG TABLET PO ONE (21:00)
[2021-12-27] MEDS: LOSARTAN 50 MG TABLET PO SCH (21:03)
[2021-12-27] MEDS: SODIUM CHLORIDE FLUSH 0.9% 10 ML SYRINGE IVP SCH (23:13)
[2021-12-28] MEDS ORDERED: LEVOTHYROXINE 75 MCG TABLET PO SCH (07:00)
[2021-12-28 08:05] VITALS: BP 153/76
[2021-12-28] MEDS: LOSARTAN 50 MG TABLET PO SCH (08:31)
[2021-12-28] MEDS: SODIUM CHLORIDE FLUSH 0.9% 10 ML SYRINGE IVP SCH (08:31)
[2021-12-28 08:47] LABS: CHOL/HDL RATIO 3.2 (<4.4); CHOLESTEROL 347 mg/dL; HDL CHOLESTEROL 107 mg/dL; LDL CHOLESTEROL,CALCULATED 221 mg/dL; LDL/HDL RATIO 2.1 (<4.4); TRIGLYCERIDES 93 mg/dL; VLDL CHOLESTEROL 19 mg/dL
[2021-12-28] MEDS ORDERED: ASPIRIN EC 325 MG TABLET PO SCH (09:00)
[2021-12-28] MEDS ORDERED: CLOPIDOGREL 75 MG TABLET PO SCH (09:00)
--- NOTE | 2021-12-28 11:02 | Discharge Plan ---
Discharge Plan Problem Reviewed?: Yes Disposition: Home, Self Care Condition: Good Prescriptions: Clopidogrel [Plavix] 75 mg PO DAILY #30 tab Activity Restrictions: Activity as Tolerated Shower Restrictions: No Assistance Devices: Cane Health Concerns: You presented to the hospital with a sudden onset of facial tingling and numbness. You also had severe balance issues and were very dizzy. This lasted about 5 hours when you came to the emergency room. We did a CT scan of your head and did a dye study to see if you had any arterial blockages causing a stroke. The CT of the head did not show stroke, and the angiogram showed that you were having restricted blood flow in the back of the brain in the vertebral basilar artery. This region of the brain is responsible for balance and fine motor coordination. So we think you are having a TIA in the region of the brain that affects balance. An MRI of the head was done to make sure you did not have a stroke. Your symptoms have gradually improved. They are not completely gone but much better and you are safe to go home. Plan of Treatment: We can never make the risk of stroke 0%. But we can make the risk much lower. We do that by modifying all the risk factors that make someone go on to have a stroke. Risk factors include age, sex, family history, diabetes, smoking, and c holesterol. We cannot modify her age, family history or gender but we can make your cholesterol, sugar, and smoking history better. In your case, your cholesterol needs to be as low as possible. You should be on atorvastatin but it makes you feel very weak. As such you did get atorvastatin while you were here. When you go home, please resume your atorvastatin but discussed with your primary care provider if there is a different cholesterol pill such as simvastatin or rosuvastatin that would be better tolerated by you. Please try those pills to make sure you can stay on a cholesterol pill. The other treatment is to give you blood thinning to affect your platelets. We want your platelets not to coagulate as much. That is what leads to stroke and heart attack. You are now being discharged on an aspirin a day of 81 mg. You are also being discharged on Plavix 75 mg a day. You will require dual platelet therapy in the form of these 2 pills for a month. Please discuss with your primary care provider which pill you go off of in a month. When you go off Plavix or will go off aspirin? A final risk factor modifying thing to do would be to stop drinking. You currently drink 3 drinks a day. For your height and size the most you should be drinking is 1 drink a day. Alcohol will affect her blood pressure. By drinking 1 drink a day your blood pressure will lower itself automatically. I am ordering physical therapy in the outpatient setting. You still have some balance difficulties and we would like to get physical therapy for that. I am also recommending that you always walk with a cane no matter where you are. Please see your primary care provider in follow-up in the next 1 to 2 weeks. Care Goals: To reduce your risk of stroke and heart attack is much as possible. Assessment: Patient's and power of corporate attorney is at the bedside with all of these conversations. He and she will follow through on treatment plan and visits to her doctor Follow-Up Care: Outpatient Rehab - PT No Smoking: If you smoke, Please STOP! Call for help. Follow-up with: Dilcia Pickett MD [Primary Care Provider] -
--- NOTE | 2021-12-28 11:43 | DISCHARGE SUMMARY ---
Discharge Summary Admit Date: 12/27/21 Discharge Date: 12/28/21 Discharging Provider: Marcie Byrne MD Primary Care Provider: Jelena Pickett MD Code Status: Attempt Resuscitation Condition at Discharge: Good Discharge Disposition: 01 Home, Self Care - DIAGNOSES Discharge Diagnoses with Status of Each Condition: 1. Vertebrobasilar TIA 2. Hypertension 3. Hyperlipidemia 4. Generalized anxiety disorder 5. Hypothyroidism - HPI History of Present Illness: 76-year-old white female whose risk factors for peripheral vascular disease include hypertension, hyperlipidemia with a positive family history but she is a non-smoker, nondiabetic. She was having intercourse with her this morning when she felt "numb and tingly" all over. When she got up out of bed she felt like she could not walk correctly and was dizzy and had an ataxic gait. After 5 hours she decided to come to the emergency room because she was not getting any better. She told the triage nurse that she was having bilateral lower extremity weakness. Tingling to the right side of her face and right hand had gotten better. Right ear hurt. She does have a history of anxiety so she was wondering if she was having a panic attack. Temperature was 37.4. Heart rate 102. Blood pressure 198/84. Respirations 16 and 97% on room air. Dr. Orellana describes her as having a wide based tandem gait. CT angiogram of the head and neck shows bilateral sclerotic calcification of the cavernous segments of both internal carotids resulting in moderate stenosis distally in the left. The flow within the paired anterior cerebral arteries is normal and symmetric. Middle cerebral arteries are normal. Anterior communicating artery okay. She has a diminutive right vertebral artery terminating in the right posterior inferior cerebellar artery. Left vertebral artery dominant. 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 It terminates in the superior cerebellar arteries. 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 Bilateral P1 hypoplasia/a plasia. P2 segments are supplied by widely patent posterior communicating arteries. Moderate atrophy and multifocal white matter chronic ischemic changes but no acute stroke. Telestroke was consulted. They instructed us to start the patient on dual platelet therapy. They would like an MRI in the morning. Unfortunately there is not much to do for this type of anatomy, but they would like us to call him if she has recurrence or worsening severity of symptoms. After the MRI she can be discharged. 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 CT of head and neck with angiogram has bilateral sclerotic calcification of the cavernous segments of both internal carotid arteries resulting in moderate stenosis distally in the left. The flow within the paired anterior cerebral arteries is normal. Flow within the middle cerebral arteries is normal and symmetric. In the posterior circulation there is a diminutive right vertebral artery terminating in the right posterior inferior cerebellar artery. The left vertebral arteries patient. 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 This artery terminates in the superior cerebellar artery. Small basilar artery aneurysm measures 1 to 2 mm. She has bilateral P1 hypoplasia/a plasia. P2 segments are supplied by widely patent posterior communicating artery. Atrophy and chronic ischemic changes are present. But no acute or subacute injury. #2. Lipid panel with triglycerides 93, cholesterol 347, LDL 221, VLDL 19, HDL 107. 3. MRI of the head - HOSPITAL COURSE Hospital Course: Overnight she was placed on telemetry and there were no arrhythmias. She received Plavix and aspirin. A lipid panel is as above and she does have, on the one hand and incredibly high HDL, but on the other hand and also incredibly high LDL. She would benefit from risk factor management with a statin. She does not tolerate atorvastatin very well because it makes her feel "weak". I told her that her at least take the atorvastatin while she is here, but it the doctor's office please discuss whether rosuvastatin or simvastatin might be better tolerated. She really should be on a statin. She will need to be on a dual platelet agent with Plavix and aspirin for the next month. PCP will need to decide which agent to discontinue at that point. I have also explained to the patient's blood pressure should be as low as tolerated. Aim for 120/70. Avoid alcohol. She currently drinks 3 drinks a day and at 62 kg they may be too much for a 5 foot 1 inch female. Aim for 1 drink a day. I am recommending outpatient physical therapy. And for her to use a cane or walking stick at all times. Much of her ataxia had improved by the time of discharge but she still needed to touch furniture and slater for balance. Physical therapy did see her. At the time of this discharge final MRI report is pending. That needs to be reviewed in the outpatient setting with her PCP. At discharge temperature is 36.5. Heart rate 82. Blood pressure 153/76. Respirations 18. 98% on room air. 5 feet 1 inch female, 62 kg. Last night fi [id number] cerebellar testing was disrupted. But otherwise her neurological exam was intact. Lungs are clear, regular rate and rhythm. She is asked to follow through with her primary care provider to discuss the dual platelet therapy, treatment with statins, and make sure she follows through with physical therapy. - ALLERGIES Allergies/Adverse Reactions: Allergies Allergy/AdvReac Type Severity Reaction Status Date / Time hydrocodone Allergy Itching Verified 12/27/21 14:29 lisinopril AdvReac Unknown Verified 12/27/21 14:29 - MEDICATIONS Home Medications: Ambulatory Orders Medication Instructions Recorded Confirmed Alprazolam [Xanax] 0.25 mg PO Q8H PRN 02/11/15 12/28/21 Ascorbic Acid [Fruit C-500] 500 mg PO DAILY 02/11/15 12/28/21 Aspirin [Aspir 81] 81 mg PO DAILY 02/11/15 12/28/21 Cholecalciferol (Vitamin D3) 2,000 units PO DAILY 02/11/15 12/28/21 [Vitamin D3] Fluticasone [Flonase] 1 spray CHRISTIANE DAILY 02/11/15 12/28/21 Losartan [Cozaar] 50 mg PO BID 02/11/15 12/28/21 Multivitamin [Multivitamins] 1 tab PO DAILY 02/11/15 12/28/21 [place]-3 Fatty Acids/Fish Oil [Fish 1 cap PO DAILY 02/11/15 12/28/21 Oil 1,000 mg Capsule] Vitamin B Complex 1 tab PO DAILY 02/11/15 12/28/21 Zolpidem Tartrate [Ambien] 10 mg PO QPM PRN 02/11/15 12/28/21 Albuterol Sulf [Ventolin Hfa 2 puffs INH Q4H PRN 12/28/21 12/28/21 Inhaler] Atorvastatin Calcium [Lipitor] 40 mg PO DAILY #0 12/28/21 12/28/21 Clopidogrel [Plavix] 75 mg PO DAILY #30 tab 12/28/21 Levothyroxine Sodium [Synthroid] 50 mcg PO QDAC 12/28/21 12/28/21 - LABS Result Diagrams: 12/27/21 14:56 12/27/21 14:56
--- NOTE | 2021-12-28 12:43 | MRI Report ---
PROCEDURE: BRAIN WO INDICATIONS: PICA stroke TECHNIQUE: Noncontrast axial T1 spin echo, axial T2 fast spin echo, sagittal and axial FLAIR, coronal T2 fast sp in echo, axial gradient echo, axial diffusion and ADC through the brain. COMPARISON: CT angiogram of the head and neck dated 12/27/2021 FINDINGS: Image quality: Excellent. CSF Spaces: Basal cisterns are patent. No extra-axial fluid collections. Ventricles are normal in size and shape. Brain: No intracranial masses or hemorrhage. Atkins/white matter interface is normal. Brainstem appe ars normal. Age-related volume loss and mild small vessel ischemic change. Diffusion-weighted images demonstrate no acute ischemic insult. No chronic ischemic insults. Normal intravascular flow voids are present. Skull and face: Calvarium has normal marrow signal. Orbits appear normal. Sinuses: Sinuses and mastoids are clear. IMPRESSION: No evidence of acute intracranial abnormality. No evidence of acute stroke, hemorrhage, or mass. Reviewed by: Wilfred Garcia MD on 12/28/2021 12:42 PM PST Approved by: Wilfred Garcia MD on 12/28/2021 12:42 PM PST Station ID: [id number]
== END 2021-12-28 13:30 | disposition home or self-care (01) ==
LOC: ED 13:47 → MS2 17:44
PROVIDERS: ADMIT Specialist; ATTEND Specialist
DX: G45.0 Vertebro-basilar artery syndrome (principal); R27.0 Ataxia, unspecified; I65.1 Occlusion and stenosis of basilar artery; I65.22 Occlusion and stenosis of left carotid artery; F41.1 Generalized anxiety disorder; I72.5 Aneurysm of other precerebral arteries; I10 Essential (primary) hypertension; E03.9 Hypothyroidism, unspecified; E78.00 Pure hypercholesterolemia, unspecified; Z20.822 Contact with and (suspected) exposure to COVID-19; Z79.82 Long term (current) use of aspirin; Z79.890 Hormone replacement therapy; Z79.899 Other long term (current) drug therapy; Z80.1 Family history of malignant neoplasm of trachea, bronchus and lung; Z80.3 Family history of malignant neoplasm of breast; Z82.49 Family history of ischemic heart disease and other diseases of the circulatory system; Z90.710 Acquired absence of both cervix and uterus
CPT/HCPCS: 36415; 70496; 70498; 70551; 80048; 80061; 83735; 84100; 85025; 87635; 93005; A9270; G0378; J2060; Q9967; 83721; 96374; 99284

== ENCOUNTER 2022-03-30 09:16 | Outpatient (CLI) | payer MEDICARE, OTHER ==
[2022-03-30 09:52] LABS: CHOL/HDL RATIO 2.5 (<4.4); CHOLESTEROL 242 mg/dL; HDL CHOLESTEROL 96 mg/dL; LDL CHOLESTEROL,CALCULATED 130 mg/dL; LDL/HDL RATIO 1.4 (<4.4); TRIGLYCERIDES 78 mg/dL; VLDL CHOLESTEROL 16 mg/dL
== END 2022-03-30 09:17 | disposition home or self-care (01) ==
LOC: LAB 09:16
PROVIDERS: ATTEND Internal Medicine
DX: E78.5 Hyperlipidemia, unspecified (principal); G45.0 Vertebro-basilar artery syndrome
CPT/HCPCS: 36415; 80061; 83721

== ENCOUNTER 2022-04-09 14:53 | Outpatient (CLI) | payer MEDICARE, OTHER ==
--- NOTE | 2022-04-13 10:01 | Mammography Report ---
BILATERAL DIGITAL SCREENING MAMMOGRAM 3D/2D: 04/09/2022 CLINICAL: Routine screening. Comparison is made to exams dated: 02/11/2021 mammogram, 12/25/2019 mammogram, 12/14/2018 mammogram, an d 10/27/2017 mammogram - [facility]. There are scattered areas of fibroglandular density in both breasts (category b / 25%-50% glandular t issue). No significant masses, calcifications, or other findings are seen in either breast. There has been no significant interval change. IMPRESSION: NEGATIVE There is no mammographic evidence of malignancy. A 1 year screening mammogram is recommended. Based on the Tyrer Cuzick model (a risk assessment model) the patients lifetime risk is 5.6% and her 10 year risk is 5.0%. According to the ACR, ACS, and NCCN guidelines, an annual breast MRI exam lorna g with mammogram is recommended if the patients lifetime risk is 20% or greater. This exam was interpreted at Station ID: [id number]. NOTE: For mammograms, a report in lay terms will be sent to the patient. Approximately 15% of breast malignancies will not be visualized mammographically. In the management of a palpable breast mass, a negative mammogram must not discourage biopsy of a clinically suspicious lesion. Electronically Signed By: Mannie jean/alda:04/12/2022 17:07:42 letter sent: No_Letter ACR BI-RADS Category 1: Negative 3341F PARENCHYMAL PATTERN: (A) - The breast(s) demonstrate(s) scattered fibroglandular densities. BI-RADS CATEGORY: (1) - 1 Mammogram [id number] 1 year screening LATERALITY: (B)
== END 2022-04-09 14:54 | disposition home or self-care (01) ==
LOC: DI 14:53
DX: Z12.31 Encounter for screening mammogram for malignant neoplasm of breast (principal)

== ENCOUNTER 2022-08-06 08:53 | Outpatient (CLI) | payer MEDICARE, OTHER ==
[2022-08-06 09:25] LABS: CHOL/HDL RATIO 2.7 (<4.4); CHOLESTEROL 268 mg/dL; HDL CHOLESTEROL 98 mg/dL; LDL CHOLESTEROL,CALCULATED 152 mg/dL; LDL/HDL RATIO 1.6 (<4.4); TRIGLYCERIDES 89 mg/dL; VLDL CHOLESTEROL 18 mg/dL
== END 2022-08-06 08:54 | disposition home or self-care (01) ==
LOC: LAB 08:53
PROVIDERS: ATTEND Internal Medicine
DX: E78.5 Hyperlipidemia, unspecified (principal)
CPT/HCPCS: 36415; 80061; 83721

== ENCOUNTER 2023-01-20 12:17 | Outpatient (CLI) | payer MEDICARE, OTHER | END 2023-01-20 12:18 | disposition home or self-care (01) | LOC: DI 12:17 | PROVIDERS: ATTEND Internal Medicine | DX: I48.91 Unspecified atrial fibrillation (principal); R00.1 Bradycardia, unspecified; I51.7 Cardiomegaly; I34.0 Nonrheumatic mitral (valve) insufficiency | CPT/HCPCS: 93306 ==

== ENCOUNTER 2023-07-08 09:15 | Outpatient (CLI) | payer MEDICARE, OTHER ==
--- NOTE | 2023-07-11 09:33 | Mammography Report ---
BILATERAL DIGITAL SCREENING MAMMOGRAM 3D/2D WITH EXAGGERATED CC: 07/08/2023 CLINICAL: Routine screening. Comparison is made to exams dated: 02/11/2021 mammogram, 04/09/2022 mammogram, 12/25/2019 mammogram, and 12/14/2018 mammogram - [facility]. There are scattered areas of fibroglandular density in both breasts (category b / 25%-50% glandular t issue). No significant masses, calcifications, or other findings are seen in either breast. There has been no significant interval change. IMPRESSION: NEGATIVE There is no mammographic evidence of malignancy. A 1 year screening mammogram is recommended. Based on the Tyrer Cuzick model (a risk assessment model) the patient's lifetime risk is 5.1% and her 10 year risk is 5.1%. According to the ACR, ACS, and NCCN guidelines, an annual breast MRI exam lorna g with mammogram is recommended if the patient's lifetime risk is 20% or greater. This exam was interpreted at Station ID: [id number]. NOTE: For mammograms, a report in lay terms will be sent to the patient. Approximately 15% of breast malignancies will not be visualized mammographically. In the management of a palpable breast mass, a negative mammogram must not discourage biopsy of a clinically suspicious lesion. Electronically Signed By: Mannie jean/alda:07/08/2023 12:59:44 letter sent: No_Letter ACR BI-RADS Category 1: Negative 3341F PARENCHYMAL PATTERN: (A) - The breast(s) demonstrate(s) scattered fibroglandular densities. BI-RADS CATEGORY: (1) - 1 RECOMMENDATION: (ANNUAL) - Recommend routine annual screening mammography. [id number] 1 year screening LATERALITY: (B)
== END 2023-07-08 09:16 | disposition home or self-care (01) ==
LOC: DI 09:15
DX: Z12.31 Encounter for screening mammogram for malignant neoplasm of breast (principal); R92.323 Mammographic fibroglandular density, bilateral breasts